=== PATIENT | male | born 1990 | race African-American/Black ===

== ENCOUNTER 2018-12-03 09:28 | Emergency (ER) | payer OTHER ==
[~2018-12-03] VITALS: Ht 182.9 cm; Wt 86.2 kg
[2018-12-03 09:28] VITALS: BP 143/91
[2018-12-03] MEDS ORDERED: HYDR-3165 PO (09:51)
[2018-12-03] MEDS ORDERED: MELO7.5T29 PO (09:51)
[2018-12-03] MEDS ORDERED: ORPH-16 PO (09:51)
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
== END 2018-12-03 09:55 | disposition home or self-care (01) ==
LOC: ER 09:28
DX: S39.012A Strain of muscle, fascia and tendon of lower back, initial encounter (principal); S16.1XXA Strain of muscle, fascia and tendon at neck level, initial encounter; R51 Headache; V49.49XA Driver injured in collision with other motor vehicles in traffic accident, initial encounter; Y93.I9 Activity, other involving external motion; Y92.488 Other paved roadways as the place of occurrence of the external cause; Y99.8 Other external cause status
CPT/HCPCS: 99283